=== PATIENT | male | born 2000 ===

== ENCOUNTER 2023-07-08 08:49 | Emergency (ER) | payer OTHER, SELFPAY ==
[2023-07-08 09:06] VITALS: BP 116/62; PULSE 96; RESP 16; TEMP 37.4; O2SAT 97
--- NOTE | 2023-07-08 09:37 | ED.URI ---
HPI - URI/Sore Throat General Chief Complaint: Upper Respiratory Infection Stated Complaint: Body Aches, Headache, Sore Throat, Fever, Earache Time Seen by Provider: 07/08/23 09:37 History of Present Illness HPI Narrative: 22-year-old male presented for complaint of sore throat, fever, and nasal congestion. Onset yesterday. Endorses temp up to 101 last night, throat pain radiates to the ears. Rates throat pain 5/10. He has taken Tylenol. Take Zyrtec daily. Denies shortness of breath, wheezing, nausea, vomiting, diarrhea or lethargy. Related Data Home Medications Medication Instructions Recorded Confirmed cetirizine 10 mg tablet 10 mg PO DAILY 07/08/23 07/08/23 Allergies Allergy/AdvReac Type Severity Reaction Status Date / Time No Known Allergies Allergy Verified 07/08/23 09:31 Review of Systems Review of Systems: CONSTITUTIONAL: Denies body aches, reports fever, chills, sweats. EYES: Denies visual changes, redness, or discharge. ENT: reports sore throat, rhinorrhea, congestion, otalgia. CARDIOVASCULAR: Denies chest pain, palpitations, or edema. RESPIRATORY: Denies dyspnea. GASTROINTESTINAL: Denies abdominal pain, nausea, vomiting, or diarrhea. SKIN: Denies rash, itching, or wounds. MUSCULOSKELETAL: Denies back pain, joint pain, or myalgia. NEUROLOGIC: Denies headache PMF Past Medical History Medical History (Updated 07/08/23 @ 09:47 by Rocio Espinosa, NIKKI) No pertinent past medical history Exam Narrative: GENERAL: well-appearing, no acute distress. EYES: conjunctivae clear ENT: Mucous membranes moist. TMs pearly davis with normal light reflex bilaterally; no tragal tenderness. Oropharynx erythematous without lesions. Tonsils enlarged 1+ with exudate on right. No drooling, no hoarseness, no trismus, uvula midline. No tripod positioning, hot potato voice, or soft palate swelling. NECK: Supple. No lymphadenopathy CHEST: Clear to auscultation, breath sounds equal. No respiratory distress, speaks in full sentences. HEART: Regular rate and rhythm. No murmur heard. SKIN: Warm, dry, no rash. NEURO: Alert and oriented x3. Course Course Emergency Course: Patient is aware of diagnosis, understands and agrees to treatment plan. Anticipatory guidance given. Patient agrees to follow-up as directed and is aware of reasons to seek care at the emergency department. Portions of this record may have been created with voice recognition software Level of Care: Express Care Visit Vital Signs Vital signs: Vital Signs Temperature 99.4 F 07/08/23 09:06 Pulse Rate 96 07/08/23 09:06 Respiratory Rate 16 07/08/23 09:06 Blood Pressure 116/62 07/08/23 09:06 Pulse Oximetry 97 07/08/23 09:06 Temperature 99.4 F 07/08/23 09:06 Pulse Rate 96 07/08/23 09:06 Respiratory Rate 16 07/08/23 09:06 Blood Pressure 116/62 07/08/23 09:06 Pulse Oximetry 97 07/08/23 09:06 MDM - URI/Sore Throat MDM Narrative Medical decision making narrative: Neg flu, covid, strep result reviewed with pt. discussed physical exam findings. Will treat for strep based on PE and cc at this time. Advise supportive treatments and s/s to go to the ER. Patient is appropriate for outpatient treatment and follow-up. Differential Diagnosis Differential diagnosis: Likely upper respiratory infection, viral infection and pharyngitis Lab Data Labs: Influenza A Screen Negative Reference Range: Negative Influenza B Screen Negative Reference Range: Negative Strep Screen Presumptive Negative *(Reference Range: Negative)* Discharge Plan Discharge Clinical Impression: Upper respiratory infection Patient Disposition: Home, Self-Care Condition: Stable Instructions: Antibiotic Form, Upper Respiratory Infection (ED
== END 2023-07-08 09:47 | disposition home or self-care (01) ==
PROVIDERS: Emergency Provider Nurse Practitioner Family; PCP Nurse Practitioner Family
DX: J06.9 Acute upper respiratory infection, unspecified (principal); Z20.822 Contact with and (suspected) exposure to COVID-19
CPT/HCPCS: 87081; 87426; 87804; 87880; 99213; G0463